=== PATIENT | male | born 1940 | race Caucasian/White ===

== ENCOUNTER 2019-07-04 10:43 | Observation (INO) | payer MEDICARE, SELFPAY ==
[2019-07-04] VITALS (12 sets, daily range): BP systolic 91–119; BP diastolic 55–71; PULSE 77–87; RESP 15–31; TEMP 36.8–37.1; O2SAT 96–98; BMI 18.1
--- NOTE | 2019-07-04 10:57 | PC.NURSE ---
waited 5 min in waiting room, patient hasn't returned, registration states he's in the restroom and spouse is with him.
--- NOTE | 2019-07-04 11:33 | DI.RAD.S_ITS ---
PROCEDURE: XR CHEST 1V INDICATIONS: jaundiced with back pain TECHNIQUE: One view of the chest was acquired. COMPARISON: None. FINDINGS: Surgical changes and devices: Surgical clips are noted in right upper quadrant abdomen. A biliary stent is also noted.. Lungs and pleura: Marked elevation of right hemidiaphragm suggestive of moderate right-sided pleural effusion. Bilateral patchy infiltrates/atelectasis are seen. Hazy groundglass opacities throughout bilateral lung rea are noted suggestive of pulmonary edema. No gross pneumothorax. Mediastinum: Tortuous thoracic aorta is seen.. Heart size is enlarged. Bones and chest wall: No suspicious bony lesions. Overlying soft tissues appear unremarkable. IMPRESSION: Moderate right pleural effusion with elevation of right hemidiaphragm. Pulmonary edema and suggestion of bilateral patchy infiltrates/atelectasis. Pulmonary vascular congestion. No gross pneumothorax. Dictated by: Scotty Sorenson M.D. on 07/04/2019 at 13:04 Approved by: Scotty Sorenson M.D. on 07/04/2019 at 13:06
[2019-07-04 12:14] LABS: Creatine Kinase 39 U/L (55-170); HEMOLYSIS < 15 (0-50); Lactate Dehydrogenase 461 U/L (313-618); Potassium 3.2 mmol/L (3.4-5.1)
[2019-07-04 12:15] LABS: Alanine Aminotransferase 12 IU/L (<50); Albumin 2.9 g/dL (3.5-5.0); Albumin Globulin Ratio 0.6 (1.0-2.8); Alkaline Phosphatase 851 U/L (38-126); Aspartate Aminotransferase 81 IU/L (17-59); BUN Creatinine Ratio 16.5 (6-22); Bilirubin Total 11.6 mg/dL (0.2-1.3); Blood Urea Nitrogen 14 mg/dL (9-20); Calcium 8.5 mg/dL (8.4-10.2); Carbon Dioxide 23 mmol/L (22-32); Chloride 108 mmol/L (98-107); Estimated Glomerular Filt Rate > 60.0 mL/min (>60); Globulin 5.2 g/dL (1.7-4.1); Glucose 118 mg/dL (80-110); Lactate (Lactic Acid) 1.1 mmol/L (0.7-2.1); Lipase 42 U/L (23-300); Sodium 141 mmol/L (137-145); Total Protein 8.1 g/dL (6.3-8.2)
--- NOTE | 2019-07-04 12:16 | ED.WEAKNESS ---
HPI - Weakness General Chief complaint: Weakness Stated complaint: Low Back Pain, SOB, Weakness, Low BP Time Seen by Provider: 07/04/19 11:32 Source: patient Mode of arrival: Ambulatory Limitations: no limitations and other History of Present Illness HPI Narrative: CC: Weakness, shortness of breath and left upper back pain. HPI: The patient is a 79-year-old male who has a history of Parkinson's disease, hard of hearing and chronic jaundice with sclerosing cholangitis. The patient for the last couple of days has had increasing shortness of breath with fatigue and no energy to get up and about. He has been complaining of a discomfort in his left arm upper chest with tenderness of the upper left posterior ribs. He denies any fall or injury. According to his he is not a diabetic or has high blood pressure and has not had a heart attack. Related Data Home Medications Medication Instructions Recorded Confirmed Ursodial 300 mg PO TID 07/04/19 acetaminophen [Tylenol] 650 mg PO Q4H PRN 07/04/19 07/04/19 ascorbic acid (vitamin C) [Vitamin 1,000 mg PO DAILY 07/04/19 07/04/19 C] balsalazide 1,500 mg PO BID 07/04/19 07/04/19 carbidopa-levodopa 2 tab PO TID 07/04/19 07/04/19 ergocalciferol (vitamin D2) 4,000 units PO DAILY 07/04/19 07/04/19 ferrous sulfate 325 mg PO DAILY 07/04/19 07/04/19 furosemide [Lasix] 40 mg PO DAILY PRN 07/04/19 07/04/19 lactobacillus combination no.8 07/04/19 [Adult Probiotic] magnesium 200 mg PO DAILY 07/04/19 07/04/19 milk thistle 1,000 mg DAILY 07/04/19 07/04/19 omeprazole 20 mg PO DAILY 07/04/19 07/04/19 polyethylene glycol 3350 [Miralax] 17 g PO DAILY 07/04/19 07/04/19 potassium chloride 20 meq PO DAILY PRN 07/04/19 07/04/19 vitamin A 10,000 unit PO DAILY 07/04/19 07/04/19 Allergies Allergy/AdvReac Type Severity Reaction Status Date / Time NSAIDS (Non-Steroidal AdvReac Verified 07/04/19 11:23 Anti-Inflamma Patient History Medical History (Updated 07/04/19 @ 18:44 by Demetri Payne MD) Cholangitis, sclerosing (Acute) History of gallbladder cancer (Acute) Knee osteoarthritis (Acute) Parkinson disease (Acute) Right femoral fracture (Acute) Spinal compression fracture (Acute) Social History household members: spouse Smoking Status: Never smoker alcohol intake: former Smoking Status: Never smoker alcohol intake frequency: other Substance Use Type: does not use Exam Initial Vital Signs Initial Vital Signs: Vital Signs Pulse Rate 87 07/04/19 11:17 Pulse Oximetry 98 07/04/19 11:17 Course Course Course Narrative: 1425 the patient's chest x-ray reveals a moderate right pleural effusion with elevation of the right hemidiaphragm. Pulmonary edema and suggestion of bilateral patchy infiltrates/atelectasis. Pulmonary vascular congestion no gross pneumothorax. The patient's initial troponin is normal. The patient's lactate acid is 1.1. A repeat troponin and EKG will be obtained on the patient as well as BNP since the patient has sclerosing cholangitis with chronic jaundice. The patient's white blood count is 10.9. The patient's initial EKG obtained at 11:3 12:24 a.m. reveals a ventricular rate of 86 with a normal sinus rhythm. Intervals appear to be otherwise normal with a borderline QTC at 452 milliseconds. Upatoi is normal. The patient has QS waves in leads III with noisy baseline. T-waves appear to be upright. The patient's T-waves in leads V1 are inverted flat in V2 questionably inverted in V3. The this suggests the possibility that the patient may have anteroseptal arm ischemia. A repeat troponin and repeat EKG will be obtained on the patient. 1434: The patient is a poor historian. I reviewed the patient's chest x-ray myself and he has an elevated right diaphragm with a very large pleural effusion on the right side. He has what appears to be bilateral arm infiltrates which could represent atelectasis. This may represent a pneumonia. A repeat EKG obtained on July 03 at 14:3 6:26 a.m. revealed a normal sinus rhythm with a ventricular rate of 84. His intervals were normal. QTC was 404 milliseconds. Upatoi was normal. The patient's EKG revealed that he had inverted T-waves in leads III with flat the T-waves in AVF. The patient had an inverted T-wave in V1. Orders Ordered: Acetaminophen (Tylenol) 650 mg PO TID [facility] Last Admin: 07/05/19 05:32 Dose: 650 mg Documented by: Admin: 07/04/19 21:55 Dose: Not Given Documented by: RADHA Carbidopa/Levodopa (Sinemet 25-100 Tab) 2 each PO TID [facility] Last Admin: 07/04/19 21:56 Dose: Not Given Documented by: RADHA Levofloxacin (Levaquin) 750 mg in 150 mls @ 100 mls/hr IV Q24H [facility] Last Infusion: 07/04/19 21:56 Dose: 100 mls/hr Documented by: Admin: 07/04/19 19:05 Dose: 100 mls/hr Documented by: RADHA Sodium Chloride (Normal Saline 0.9%) 250 mls @ 21 mls/hr IV Q24H PRN PRN Reason: Flush Naloxone HCl (Narcan) 0.2 mg IV Q2MIN PRN PRN Reason: Opiate Reversal Ondansetron HCl (Zofran) 4 mg IV Q8HR PRN PRN Reason: Nausea And Vomiting Pantoprazole Sodium (Protonix) 20 mg PO 0600 [facility] Last Admin: 07/05/19 05:27 Dose: 20 mg Documented by: Admin: 07/04/19 19:05 Dose: 20 mg Documented by: RADAH Polyethylene Glycol (Miralax) 17 gm PO DAILY [facility] Sodium Chloride (Normal Saline 0.9% Flush) 10 ml IV BID [facility] Sodium Chloride (Normal Saline 0.9% Flush) 10 ml IV PRN PRN PRN Reason: Flush Ursodiol (Actigall) 300 mg PO TID [facility] Last Admin: 07/04/19 21:56 Dose: Not Given Documented by: RADHA Discontinued Medications Sodium Chloride (Normal Saline 0.9%) 1,000 mls @ 150 mls/hr IV CONT [facility] Last Infusion: 07/04/19 16:05 Dose: 0 mls/hr Documented by: Admin: 07/04/19 12:24 Dose: 1,000 mls/hr Documented by: MISHEL Cefepime HCl 2 gm/ Sodium (Chloride) 100 mls @ 200 mls/hr IV NOW ONE Stop: 07/04/19 14:50 Last Infusion: 07/04/19 15:37 Dose: 0 mls/hr Documented by: Admin: 07/04/19 15:03 Dose: 200 mls/hr Documented by: MISHEL Potassium Chloride (Klor-Con M20) 20 meq PO NOW ONE Stop: 07/04/19 18:04 Last Admin: 07/04/19 19:05 Dose: 20 meq Documented by: RADHA Potassium Chloride (Klor-Con M20) 40 meq PO NOW ONE Stop: 07/05/19 06:45 Vital Signs Vital signs: Vital Signs - 8 hr 07/04/19 12:09 07/04/19 14:06 07/04/19 14:32 Pulse Rate 84 81 80 Respiratory Rate 17 15 20 Blood Pressure [Left Arm] 102/62 91/55 L 93/58 L Pulse Oximetry 97 98 97 MDM - Weakness Lab Data Result diagrams: 07/05/19 05:25 07/05/19 05:25 Labs: Lab Results 07/04/19 07/04/19 07/04/19 Range/Units 11:45 11:45 11:45 WBC 10.9 (4.5-11.0) X10^3/uL RBC 3.27 L (4.5-5.9) X10^6/uL Hgb 10.6 L (13.5-17.5) g/dL Hct 30.6 L (41-53) % MCV 93.6 (80-100) fL MCH 32.4 (26-34) PG MCHC 34.7 (30-36) % RDW 14.8 (11.6-14.8) % Plt Count 342 (150-400) X10^3/uL Neut % (Auto) Not Reportable Lymph % (Auto) Not Reportable Cherry % (Auto) Not Reportable Eos % (Auto) Not Reportable Baso % (Auto) Not Reportable Lymph # (Auto) Not Reportable Cherry # (Auto) Not Reportable Baso # (Auto) Not Reportable Total Counted 100 Seg Neutrophils % 69.0 (38-70) % Band Neutrophils % 6.0 (3-7) % Lymphocytes % (Manual) 16.0 L (25-45) % Monocytes % (Manual) 9.0 (2-11) % Neutrophils # (Manual) 8175 H (4061-1818) /uL RBC Morphology See below Target Cells 1+ H PT (10.1-12.7) SECONDS INR (0.9-1.3) APTT (26.4-36.2) SECONDS Sodium 141 (137-145) mmol/L Potassium 3.2 L (3.4-5.1) mmol/L Chloride 108 H (98-107) mmol/L Carbon Dioxide 23 (22-32) mmol/L BUN 14 (9-20) mg/dL Creatinine 0.85 (0.66-1.25) mg/dL Estimated GFR > 60.0 (>60) mL/min BUN/Creatinine Ratio 16.5 (6-22) Glucose 118 H (80-110) mg/dL Lactate (0.7-2.1) mmol/L Calcium 8.5 (8.4-10.2) mg/dL Total Bilirubin 11.6 H (0.2-1.3) mg/dL AST 81 H (17-59) IU/L ALT 12 (<50) IU/L Alkaline Phosphatase 851 H (38-126) U/L Lactate Dehydrogenase 461 (313-618) U/L Total Creatine Kinase 39 L (55-170) U/L CK-MB (CK-2) TNP CK-MB (CK-2) Rel Index TNP Troponin I < 0.012 (0.01-0.034) ng/mL NT-Pro-B Natriuret Pep (<450) pg/mL Total Protein 8.1 (6.3-8.2) g/dL Albumin 2.9 L (3.5-5.0) g/dL Globulin 5.2 H (1.7-4.1) g/dL Albumin/Globulin Ratio 0.6 L (1.0-2.8) Lipase 42 (23-300) U/L Procalcitonin (<0.5) ng/mL Urine Color Urine Appearance Urine pH (4.5-8.0) Ur Specific [place] (1.000-1.035) Urine Protein (Negative) Urine Glucose (UA) (Negative) g/dL Urine Ketones (NEGATIVE) Urine Occult Blood (Negative) Urine Nitrate (Negative) Urine Bilirubin (NEGATIVE) Ur Bilirubin Confirm (Negative) Urine Urobilinogen (0.2) E.U./dL Ur Leukocyte Esterase (NEGATIVE) Urine RBC (0-5/HPF) Urine WBC (0-5/HPF) Ur Squamous Epith Cells (0-5/HPF) Urine Bacteria (None) Ur Culture Indicated? 07/04/19 07/04/19 07/04/19 Range/Units 11:45 11:45 11:45 WBC (4.5-11.0) X10^3/uL RBC (4.5-5.9) X10^6/uL Hgb (13.5-17.5) g/dL Hct (41-53) % MCV (80-100) fL MCH (26-34) PG MCHC (30-36) % RDW (11.6-14.8) % Plt Count (150-400) X10^3/uL Neut % (Auto) Lymph % (Auto) Cherry % (Auto) Eos % (Auto) Baso % (Auto) Lymph # (Auto) Cherry # (Auto) Baso # (Auto) Total Counted Seg Neutrophils % (38-70) % Band Neutrophils % (3-7) % Lymphocytes % (Manual) (25-45) % Monocytes % (Manual) (2-11) % Neutrophils # (Manual) (9823-2793) /uL RBC Morphology Target Cells PT (10.1-12.7) SECONDS INR (0.9-1.3) APTT (26.4-36.2) SECONDS Sodium (137-145) mmol/L Potassium (3.4-5.1) mmol/L Chloride (98-107) mmol/L Carbon Dioxide (22-32) mmol/L BUN (9-20) mg/dL Creatinine (0.66-1.25) mg/dL Estimated GFR (>60) mL/min BUN/Creatinine Ratio (6-22) Glucose (80-110) mg/dL Lactate 1.1 (0.7-2.1) mmol/L Calcium (8.4-10.2) mg/dL Total Bilirubin (0.2-1.3) mg/dL AST (17-59) IU/L ALT (<50) IU/L Alkaline Phosphatase (38-126) U/L Lactate Dehydrogenase (313-618) U/L Total Creatine Kinase (55-170) U/L CK-MB (CK-2) CK-MB (CK-2) Rel Index Troponin I < 0.012 (0.01-0.034) ng/mL NT-Pro-B Natriuret Pep 447 (<450) pg/mL Total Protein (6.3-8.2) g/dL Albumin (3.5-5.0) g/dL Globulin (1.7-4.1) g/dL Albumin/Globulin Ratio (1.0-2.8) Lipase (23-300) U/L Procalcitonin 0.61 H (<0.5) ng/mL Urine Color Urine Appearance Urine pH (4.5-8.0) Ur Specific [place] (1.000-1.035) Urine Protein (Negative) Urine Glucose (UA) (Negative) g/dL Urine Ketones (NEGATIVE) Urine Occult Blood (Negative) Urine Nitrate (Negative) Urine Bilirubin (NEGATIVE) Ur Bilirubin Confirm (Negative) Urine Urobilinogen (0.2) E.U./dL Ur Leukocyte Esterase (NEGATIVE) Urine RBC (0-5/HPF) Urine WBC (0-5/HPF) Ur Squamous Epith Cells (0-5/HPF) Urine Bacteria (None) Ur Culture Indicated? 07/04/19 07/04/19 Range/Units 11:45 11:59 WBC (4.5-11.0) X10^3/uL RBC (4.5-5.9) X10^6/uL Hgb (13.5-17.5) g/dL Hct (41-53) % MCV (80-100) fL MCH (26-34) PG MCHC (30-36) % RDW (11.6-14.8) % Plt Count (150-400) X10^3/uL Neut % (Auto) Lymph % (Auto) Cherry % (Auto) Eos % (Auto) Baso % (Auto) Lymph # (Auto) Cherry # (Auto) Baso # (Auto) Total Counted Seg Neutrophils % (38-70) % Band Neutrophils % (3-7) % Lymphocytes % (Manual) (25-45) % Monocytes % (Manual) (2-11) % Neutrophils # (Manual) (6455-0901) /uL RBC Morphology Target Cells PT 19.6 H (10.1-12.7) SECONDS INR 1.7 H (0.9-1.3) APTT 43 H (26.4-36.2) SECONDS Sodium (137-145) mmol/L Potassium (3.4-5.1) mmol/L Chloride (98-107) mmol/L Carbon Dioxide (22-32) mmol/L BUN (9-20) mg/dL Creatinine (0.66-1.25) mg/dL Estimated GFR (>60) mL/min BUN/Creatinine Ratio (6-22) Glucose (80-110) mg/dL Lactate (0.7-2.1) mmol/L Calcium (8.4-10.2) mg/dL Total Bilirubin (0.2-1.3) mg/dL AST (17-59) IU/L ALT (<50) IU/L Alkaline Phosphatase (38-126) U/L Lactate Dehydrogenase (313-618) U/L Total Creatine Kinase (55-170) U/L CK-MB (CK-2) CK-MB (CK-2) Rel Index Troponin I (0.01-0.034) ng/mL NT-Pro-B Natriuret Pep (<450) pg/mL Total Protein (6.3-8.2) g/dL Albumin (3.5-5.0) g/dL Globulin (1.7-4.1) g/dL Albumin/Globulin Ratio (1.0-2.8) Lipase (23-300) U/L Procalcitonin (<0.5) ng/mL Urine Color Brown Urine Appearance Clear Urine pH 5.0 (4.5-8.0) Ur Specific [place] 1.015 (1.000-1.035) Urine Protein Trace H (Negative) Urine Glucose (UA) Negative (Negative) g/dL Urine Ketones Negative (NEGATIVE) Urine Occult Blood 2+ H (Negative) Urine Nitrate Negative (Negative) Urine Bilirubin 2+ H (NEGATIVE) Ur Bilirubin Confirm Positive H (Negative) Urine Urobilinogen Normal (0.2) E.U./dL Ur Leukocyte Esterase Negative (NEGATIVE) Urine RBC 10-30/hpf H (0-5/HPF) Urine WBC 0-1/hpf (0-5/HPF) Ur Squamous Epith Cells 0-1 /hpf (0-5/HPF) Urine Bacteria Moderate (10-30) H (None) Ur Culture Indicated? Specimen cultured Discharge Plan Departure Patient Disposition: Admitted as Observation Clinical Impression: Weakness, Jaundice, Cholangitis, sclerosing Fatigue Qualifiers: Fatigue type: chronic, unspecified Qualified Code(s): R53.82 - Chronic fatigue, unspecified Bilateral pneumonia Qualifiers: Pneumonia type: due to unspecified organism Lung location: unspecified part of lung Qualified Code(s): J18.9 - Pneumonia, unspecified organism Back pain Qualifiers: Back pain location: thoracic back pain Chronicity: unspecified Back pain laterality: left Qualified Code(s): M54.6 - Pain in thoracic spine Urinary tract infection Qualifiers: Urinary tract infection type: site unspecified Hematuria presence: with hematuria Qualified Code(s): N39.0 - Urinary tract infection, site not specified Discharge Date/Time: 07/04/19 17:32 Referrals: Eddie Aguirre MD [Primary Care Provider] - Admit Date/Time: 07/04/19 15:00 Admit Provider: Demetri Payne
[2019-07-04 12:24] LABS: Appearance Urine UA Clear; Color Urine UA BROWN
[2019-07-04] MEDS: SODIUM CHLORIDE 0.9% 1,000 ML 1000 ML IV (12:24)
[2019-07-04 12:25] LABS: Troponin I < 0.012 ng/mL (0.01-0.034)
[2019-07-04 12:25] LABS: Bilirubin Urine UA 2+ (NEGATIVE); Glucose Urine UA NEGATIVE (Negative); Ketones Urine UA NEGATIVE (NEGATIVE); Nitrite Urine UA NEGATIVE (Negative); Occult Blood Urine UA 2+ (Negative); Protein Urine UA TRACE (Negative); Specific Gravity Urine UA 1.015 (1.000-1.035); Urobilinogen Urine UA Normal E.U./dL (0.2)
[2019-07-04 12:26] LABS: Bacteria Urine Moderate (10-30); Culture Indicated Urine Specimen Cultured; Leukocyte Esterase Urine UA NEGATIVE (NEGATIVE); RBC Urine 10-30/HPF (0-5/HPF); Squamous Epithelial Cell Urine 0-1 /HPF (0-5/HPF); WBC Urine 0-1/HPF (0-5/HPF)
[2019-07-04 12:27] LABS: Ictotest Urine Positive (Negative)
[2019-07-04 12:53] LABS: Add Manual Diff / Slide Review YES; Hematocrit 30.6 % (41-53); Hemoglobin 10.6 g/dL (13.5-17.5); Mean Corpuscular HGB Conc 34.7 % (30-36); Mean Corpuscular Hemoglobin 32.4 PG (26-34); Mean Corpuscular Volume 93.6 fL (80-100); Platelet Count 342 X10^3/uL (150-400); Red Blood Cell Count 3.27 X10^6/uL (4.5-5.9); Red Cell Distribution Width 14.8 % (11.6-14.8); White Blood Cell Count 10.9 X10^3/uL (4.5-11.0)
[2019-07-04 14:11] LABS: Neutrophils Absolute Manual 8175 /uL (3000-5900); Total Cells Counted 100
[2019-07-04 14:12] LABS: Target Cells 1+
[2019-07-04 15:01] LABS: NT-proBNP (BNP-Adult 18+) 447 pg/mL (<450); Troponin I < 0.012 ng/mL (0.01-0.034)
[2019-07-04] MEDS: CEFEPIME 2 GM in SODIUM CHLORIDE 0.9% 100 ML 200 ML IV (15:03)
--- NOTE | 2019-07-04 15:38 | PC.NURSE ---
Patient is being updated by MD. Mckenna. He is alert and oriented and trying to decide if he wants to be admitted or go home for follow up with his primary care physician.
[2019-07-04 15:45] LABS: Procalcitonin 0.61 ng/mL (<0.5)
--- NOTE | 2019-07-04 15:53 | PC.NURSE ---
Patient was on iv fluids NaCl 150mls/hr. His fluids were changed to 1000mls/hr bolus per provider verbal order.
[2019-07-04 16:02] LABS: INR 1.7 (0.9-1.3); Prothrombin Time 19.6 SECONDS (10.1-12.7)
[2019-07-04 16:04] LABS: PTT Partial Thromboplastin Tim 43 SECONDS (26.4-36.2)
--- NOTE | 2019-07-04 17:57 | PC.NURSE ---
Pt's requesting to stay with patient when he is admitted due to the fact that he is confused at times and refuses help from staff when he needs the bathroom. Kassy- LISA coordinator aware and is going to speak with those involved in order to get her permission. is aware and is waiting in ED waiting room
--- NOTE | 2019-07-04 18:21 | P.HP_ITS ---
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 Patient is hard of hearing and spouse who is reliable provides significant corroborative history. She states about 3 weeks ago he started to notice pain in the left upper back area. The discomfort started after he was bending over in chair. Thin about 2 weeks ago he started to have shortness of breath where he was getting out of breath performing normal activities. He has also been getting weaker over the last 2-3 weeks. He has noticed recent increase in his lower extremity swelling. He usually takes 40 mg of Lasix once or twice a week to maintain control of edema but has noticed Lasix is not helping much over the past few weeks. Patient denies cough, fever, abdominal pain, urinary pain or frequency. His bowel movements have been normal with taking medication for his Crohn's disease. Patient gets his care through various providers at [facility]. As noted, he has primary sclerosing cholangitis which was diagnosed in 2018. He is chronically jaundiced. On March 19, 2019 his bilirubin was 11.9 and on June 04, 2019 his bilirubin was 9.7. His bilirubin on labs today is 11.6. He was diagnosed with gallbladder carcinoma and had a cholecystectomy about a year ago at [facility]. Spouse indicates that he has had follow-up MRIs and told there was no indication of recurrence of his cancer. He denies history coronary disease or heart failure. On ER evaluation, his chest x-ray showed at least a moderate right pleural effusion with elevated right hemidiaphragm and bilateral patchy infiltrat es/atelectasis. 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 On laboratories is WBC is 10.9 with mild lymphopenia, without left shift, sodium 141, potassium 3.2, BUN 14, creatinine 0.85, glucose 118, bilirubin 11.6, alk- phos 851, troponin less than 0.012, normal pro BNP 447, albumin 2.9 and slightly elevated procalcitonin of 0.61. On urinalysis he has moderate bacteria with 0-1 WBC in 10-30 RBC. Urine was sent for culture. Patient History Medical History (Updated 07/04/19 @ 18:44 by Demetri Payne MD) Cholangitis, sclerosing (Acute) History of gallbladder cancer (Acute) Knee osteoarthritis (Acute) Parkinson disease (Acute) Right femoral fracture (Acute) Spinal compression fracture (Acute) Family & Social History Social History: household members spouse Prior Living Arrangements House Safety & Behavioral: Feels Safe in Current Yes Environment Been Physically Hurt or No Threatened By a Person Suicidal Ideation Description None Suicide Plan Description No Plan Tobacco & Substance use: Smoking Status Never smoker alcohol intake former alcohol intake frequency other Substance Use Type does not use Meds Home Medications and Allergies Home Medications Medication Instructions Recorded Confirmed Type Ursodial 300 mg PO TID 07/04/19 History acetaminophen [Tylenol] 650 mg PO Q4H PRN 07/04/19 07/04/19 History ascorbic acid (vitamin C) [Vitamin 1,000 mg PO DAILY 07/04/19 07/04/19 History C] balsalazide 1,500 mg PO BID 07/04/19 07/04/19 History carbidopa-levodopa 2 tab PO TID 07/04/19 07/04/19 History ergocalciferol (vitamin D2) 4,000 units PO DAILY 07/04/19 07/04/19 History ferrous sulfate 325 mg PO DAILY 07/04/19 07/04/19 History furosemide [Lasix] 40 mg PO DAILY PRN 07/04/19 07/04/19 History lactobacillus combination no.8 07/04/19 History [Adult Probiotic] magnesium 200 mg PO DAILY 07/04/19 07/04/19 History milk thistle 1,000 mg DAILY 07/04/19 07/04/19 History omeprazole 20 mg PO DAILY 07/04/19 07/04/19 History polyethylene glycol 3350 [Miralax] 17 g PO DAILY 07/04/19 07/04/19 History potassium chloride 20 meq PO DAILY PRN 07/04/19 07/04/19 History vitamin A 10,000 unit PO DAILY 07/04/19 07/04/19 History Allergies Allergy/AdvReac Type Severity Reaction Status Date / Time NSAIDS (Non-Steroidal AdvReac Verified 07/04/19 11:23 Anti-Inflamma Review of Systems Review of Systems ROS: Yes All systems reviewed with the patient and are negative except as otherwise documented Exam Vital Signs (past 8 hours): - 07/04/19 11:17 07/04/19 11:23 07/04/19 12:09 Temperature 98.7 F Pulse Rate 87 85 84 Respiratory Rate 17 Blood Pressure Blood Pressure [Left Arm] 107/71 102/62 Pulse Oximetry 98 97 07/04/19 14:06 07/04/19 14:32 07/04/19 15:39 Temperature Pulse Rate 81 80 81 Respiratory Rate 15 20 17 Blood Pressure Blood Pressure [Left Arm] 91/55 L 93/58 L 94/55 L Pulse Oximetry 98 97 96 07/04/19 16:23 07/04/19 17:29 Temperature Pulse Rate 87 87 Respiratory Rate 31 H 31 H Blood Pressure 119/71 Blood Pressure [Left Arm] 119/71 Pulse Oximetry 97 97 Oxygen Delivery Method Room Air Narrative Exam Narrative: General: Jaundiced chronically ill appearing elderly male who is very hard of hearing HEENT: Nontraumatic, pupils equal, sclera jaundiced, oropharynx unremarkable Neck: No lymphadenopathy Lungs: Breathing nonlabored somewhat diminished sounds on the right, no crackles or wheeze Back: Severe thoracic kyphosis Abdomen: Soft, nontender, no abdominal mass, no HSM Extremities: 2+ edema in the lower legs Skin: Dry, without rash Neurological: Alert, cooperative, not overtly confused, nonfocal weakness Objective Labs Result Diagrams: 07/04/19 11:45 07/04/19 11:45 Labs: Laboratory Results - last 24 hr 07/04/19 07/04/19 07/04/19 11:45 11:45 11:45 WBC 10.9 RBC 3.27 L Hgb 10.6 L Hct 30.6 L MCV 93.6 MCH 32.4 MCHC 34.7 RDW 14.8 Plt Count 342 Neut % (Auto) Not Reportable Lymph % (Auto) Not Reportable [place] % (Auto) Not Reportable Eos % (Auto) Not Reportable Baso % (Auto) Not Reportable Lymph # (Auto) Not Reportable [place] # (Auto) Not Reportable Baso # (Auto) Not Reportable Total Counted 100 Seg Neutrophils % 69.0 Band Neutrophils % 6.0 Lymphocytes % (Manual) 16.0 L Monocytes % (Manual) 9.0 Neutrophils # (Manual) 8175 H RBC Morphology See below Target Cells 1+ H PT INR APTT Sodium 141 Potassium 3.2 L Chloride 108 H Carbon Dioxide 23 BUN 14 Creatinine 0.85 Estimated GFR > 60.0 BUN/Creatinine Ratio 16.5 Glucose 118 H Lactate Calcium 8.5 Total Bilirubin 11.6 H AST 81 H ALT 12 Alkaline Phosphatase 851 H Lactate Dehydrogenase 461 Total Creatine Kinase 39 L CK-MB (CK-2) TNP CK-MB (CK-2) Rel Index TNP Troponin I < 0.012 NT-Pro-B Natriuret Pep Total Protein 8.1 Albumin 2.9 L Globulin 5.2 H Albumin/Globulin Ratio 0.6 L Lipase 42 Procalcitonin Urine Color Urine Appearance Urine pH Ur Specific [place] Urine Protein Urine Glucose (UA) Urine Ketones Urine Occult Blood Urine Nitrate Urine Bilirubin Ur Bilirubin Confirm Urine Urobilinogen Ur Leukocyte Esterase Urine RBC Urine WBC Ur Squamous Epith Cells Urine Bacteria Ur Culture Indicated? 07/04/19 07/04/19 07/04/19 11:45 11:45 11:45 WBC RBC Hgb Hct MCV MCH MCHC RDW Plt Count Neut % (Auto) Lymph % (Auto) [place] % (Auto) Eos % (Auto) Baso % (Auto) Lymph # (Auto) [place] # (Auto) Baso # (Auto) Total Counted Seg Neutrophils % Band Neutrophils % Lymphocytes % (Manual) Monocytes % (Manual) Neutrophils # (Manual) RBC Morphology Target Cells PT INR APTT Sodium Potassium Chloride Carbon Dioxide BUN Creatinine Estimated GFR BUN/Creatinine Ratio Glucose Lactate 1.1 Calcium Total Bilirubin AST ALT Alkaline Phosphatase Lactate Dehydrogenase Total Creatine Kinase CK-MB (CK-2) CK-MB (CK-2) Rel Index Troponin I < 0.012 NT-Pro-B Natriuret Pep 447 Total Protein Albumin Globulin Albumin/Globulin Ratio Lipase Procalcitonin 0.61 H Urine Color Urine Appearance Urine pH Ur Specific [place] Urine Protein Urine Glucose (UA) Urine Ketones Urine Occult Blood Urine Nitrate Urine Bilirubin Ur Bilirubin Confirm Urine Urobilinogen Ur Leukocyte Esterase Urine RBC Urine WBC Ur Squamous Epith Cells Urine Bacteria Ur Culture Indicated? 07/04/19 07/04/19 11:45 11:59 WBC RBC Hgb Hct MCV MCH MCHC RDW Plt Count Neut % (Auto) Lymph % (Auto) [place] % (Auto) Eos % (Auto) Baso % (Auto) Lymph # (Auto) [place] # (Auto) Baso # (Auto) Total Counted Seg Neutrophils % Band Neutrophils % Lymphocytes % (Manual) Monocytes % (Manual) Neutrophils # (Manual) RBC Morphology Target Cells PT 19.6 H INR 1.7 H APTT 43 H Sodium Potassium Chloride Carbon Dioxide BUN Creatinine Estimated GFR BUN/Creatinine Ratio Glucose Lactate Calcium Total Bilirubin AST ALT Alkaline Phosphatase Lactate Dehydrogenase Total Creatine Kinase CK-MB (CK-2) CK-MB (CK-2) Rel Index Troponin I NT-Pro-B Natriuret Pep Total Protein Albumin Globulin Albumin/Globulin Ratio Lipase Procalcitonin Urine Color Brown Urine Appearance Clear Urine pH 5.0 Ur Specific [place] 1.015 Urine Protein Trace H Urine Glucose (UA) Negative Urine Ketones Negative Urine Occult Blood 2+ H Urine Nitrate Negative Urine Bilirubin 2+ H Ur Bilirubin Confirm Positive H Urine Urobilinogen Normal Ur Leukocyte Esterase Negative Urine RBC 10-30/hpf H Urine WBC 0-1/hpf Ur Squamous Epith Cells 0-1 /hpf Urine Bacteria Moderate (10-30) H Ur Culture Indicated? Specimen cultured Assessment & Plan Assessment & Plan narrative: This is a 79-year-old male with complicated history of primary sclerosing cholangitis, gallbladder carcinoma status post resection l ast year, Parkinson's disease, thoracic and lumbar spine compression fractures, Crohn's who presented to emergency department due to increasing weakness, dyspnea and back pain. 1. Right pleural effusion, present on admission, active -patient presenting with dyspnea and weakness over the past 2-3 weeks, not hypoxic -chest x-ray noting elevated right hemidiaphragm and suggestive of a moderate right pleural effusion with bilateral patchy infiltrate or atelectasis, the effusion was not present on outside CT scan from 04/01/[address] noted chronic areas of atelectasis in the lower lobes with chronic elevation of right hemidiaphragm -etiology of effusion may be parapneumonic, secondary to primary or metastatic malignancy, or secondary to hypoalbuminemia from liver disease, -will discuss with radiology getting ultrasound-guided diagnostic/therapeutic thoracentesis, patient's INR is 1.7 which is likely not reversible, and could possibly be impediment to performing procedure -WBC 10.9 without left shift, procalcitonin slightly elevated at 0.61 could go along with bacterial process, lactate is normal, proBNP normal essentially ruling out heart failure -Levaquin 750 mg IV daily for possible pneumonia -check COVID-19 PCR 2. Possible urinary tract infection, present on admission, active -patient without urinary symptoms but has moderate bacteria in urine, 0-1 WBC, 10-30 RBC, culture indicated -on Levaquin as for possible pneumonia 3. Acute thoracic back pain, left-sided, present on admission, active -patient with new back pain x3 weeks, has history of multiple thoracic and lumbar compression fractures and may have another compression fracture, patient states back pain has been subsiding and we decided to hold off on further evaluation and to manage him with Tylenol, he would need MRI to determine whether he has new appearing compression fracture -continue regularly scheduled Tylenol which patient is on at home 4. Primary sclerosing cholangitis, chronic, active -patient is jaundice with bilirubin close to 12 -continue Ursodiol per home routine 5. History of gallbladder carcinoma resection -patient has had follow-ups at [facility] since his cholecystectomy in 2019 and told he is in remission 6. Parkinson's disease -continue patient's Sinemet per home routine 7. Crohn's disease -continue patient's own medication, not on formulary here, if he is going to be in hospital more than 1-2 days Admission status: Hospital observation Code status: Full code per spouse DVT prophylaxis: Elevated INR, Lovenox contraindicated Surrogate decision maker: Spouse Quality VTE Deep Vein Thrombosis/Pulmonary Embolism Present on Admission: No
--- NOTE | 2019-07-04 18:44 | PC.NURSE ---
Addendum entered by Marquita Philippe R.N. 07/04/19 22:43: Pt prefers right side lying position. Requires staff members x 2 to turn pt for brief change d/t fecal incontinence. Small open area proximal left buttock with erythema/excoriation to BL inner buttocks. Photos taken and barrier cream applied following pericare. Brief replaced and pt returned to right side lying position. BL calf scd's replaced. Spouse is currently not in pt's room. Pt reports took all evening meds so hs scheduled meds were not given. Bed alarm in place. No tremors noted, however, pt is rigid with turning/repositioning. Pillow between knees. Compression hose/wrap removed @ hs. Original Note: Pt to room 211 from [facility] Requires slider board to transfer from stretcher to bed. Reports h/o left knee pain. Compression wrap to left lower extremity in place as well as compression knee hi hose to RLE. Pt's spouse given special permission to stay with pt as per [place] evening hospitality house supervisor. Dr. Payne makes this request as well. Ultrasound alerts this teletypewriter installer thoracentesis cannot be completed this evening, but tomorrow. Dr. Payne informed. Per U/S tech, pt's INR may be prohibitive for thoracentesis tomorrow. Dr. Payne informed. Rapid covid-19 test completed. Pt placed on isolation. Pt is jaundiced. Follows commands appropriately. Reddened buttocks with small open area left inner buttock. Pitting edema to exposed feet BL. Pedal pulses present with doppler BL.
[2019-07-04] MEDS: levoFLOXacin 750 MG/150 ML PIGGYBACK 100 MG IV (19:05)
[2019-07-04] MEDS: POTASSIUM CHLORIDE 20 MEQ TAB PO (19:05)
[2019-07-04] MEDS: PANTOPRAZOLE 20 MG TABLET PO (19:05)
[2019-07-04 19:45] LABS: COVID19 -Nasal RAPID Negative (Negative)
[2019-07-05] VITALS (10 sets, daily range): BP systolic 100–123; BP diastolic 64–73; PULSE 73–89; RESP 16–20; TEMP 36.8–37.9; O2SAT 95–98
[2019-07-05] MEDS: PANTOPRAZOLE 20 MG TABLET PO (05:27)
[2019-07-05] MEDS: ACETAMINOPHEN 325 MG TABLET 650 MG PO ×2 (05:32→13:50)
[2019-07-05 05:41] LABS: Hematocrit 29.4 % (41-53); Hemoglobin 10.2 g/dL (13.5-17.5); Mean Corpuscular HGB Conc 34.9 % (30-36); Mean Corpuscular Hemoglobin 32.5 PG (26-34); Mean Corpuscular Volume 93.1 fL (80-100); Platelet Count 331 X10^3/uL (150-400); Red Blood Cell Count 3.16 X10^6/uL (4.5-5.9); Red Cell Distribution Width 14.8 % (11.6-14.8); White Blood Cell Count 10.6 X10^3/uL (4.5-11.0)
[2019-07-05 05:43] LABS: Add Manual Diff / Slide Review YES
[2019-07-05 05:49] LABS: BUN Creatinine Ratio 15.6 (6-22); Blood Urea Nitrogen 12 mg/dL (9-20); Calcium 8.2 mg/dL (8.4-10.2); Carbon Dioxide 24 mmol/L (22-32); Chloride 110 mmol/L (98-107); Estimated Glomerular Filt Rate > 60.0 mL/min (>60); Glucose 91 mg/dL (80-110); HEMOLYSIS < 15 (0-50); Potassium 3.3 mmol/L (3.4-5.1); Sodium 139 mmol/L (137-145)
[2019-07-05 06:08] LABS: Procalcitonin 0.63 ng/mL (<0.5)
--- NOTE | 2019-07-05 06:13 | PC.NURSE ---
Pt alert and orientex x3. COMANCHE. Weakness in BLE. /caregiver at bedside (anisha lee, acute in home caregiver) Pt has no complaints during the night. Pt refused Scds/ 3+ pitting edema in BLE. Fainy pedal pulses bilaterally. Pt has increased temp this AM and reports mild pain in back. Tylenol given. WCTM. Pt alarm set, call light within reach
[2019-07-05 06:20] LABS: Neutrophils Absolute Manual 8056 /uL (3000-5900); Total Cells Counted 100
[2019-07-05 06:21] LABS: Anisocytosis 1+; Target Cells 2+
[2019-07-05] MEDS: CARBIDOPA-LEVODOPA 25/100 TABLET 2 EACH PO ×2 (08:59→13:38)
[2019-07-05] MEDS: POTASSIUM CHLORIDE 20 MEQ TAB 40 MEQ PO ×3 (08:59→12:12)
[2019-07-05] MEDS: SODIUM CHLORIDE 0.9% FLUSH 10 ML IV ×2 (09:00→12:10)
[2019-07-05] MEDS: polyethylene glycoL 3350 17 GM POWD.PACK PO (09:02)
--- NOTE | 2019-07-05 10:06 | PC.NURSE ---
Addendum entered by Xochitl Urena R.N. 07/05/19 11:36: Dr. Payne in to speak with pt and Bety at 1137. Addendum entered by Xochitl Urena R.N. 07/05/19 11:30: Pt's Bety requesting pt to have his Balsalazide 1500 mg BID, pt's last dose was 07/03 1630. THis is a non-formulary medication. Pt's does not have a supply with her. Bety requesting that write for a prescription for pt to take a dose for now. Spoke with Dr. Payne at 1130, made aware, pt may be a possible discharge later today, if not, eBty would have to get medication from home. Addendum entered by Xochitl Urena R.N. 07/05/19 10:35: At 1030, per Dr. Payne, pt will have Ultrasound imaging first and determine if Thoracentesis is ultimately needed. Dr. Payne to modify U/S order. Original Note: Day Shift- Pt A&OX3, disoriented to day of week, date, does state that it is currently at the end of the month of Jun, 2019. Pt's Bety rooming in, as previously approved 07/03 who is very helpful with pt's ADL care. Bety stated helping pt to BR using walker with CHAIR PAD MAKER supervision. Pt was inc of BM, she had changed his brief and placed barrier cream to inner buttocks. Able to make needs known using call light. Pt is chronically jaundiced, BLE pitting edema 3+. RLE to just above knee and LLE to below knee. Pedal pulses found with doppler and marked by this scientific technical writer. Right lung AE diminished with coarseness and crackles. Left lung AE clear and diminished. SOBOE. Awaiting U/S guided Thoracentesis. Left message at 0920 to have dept call back with timing of procedure as pt, his , and Dr. Payne were asking. No other voiced concerns, call light within reach.
[2019-07-05] MEDS: FUROSEMIDE 100 MG/10 ML VIAL 80 MG IV (12:10)
--- NOTE | 2019-07-05 14:07 | CM.IDA ---
Initial DCP Assessment Note: Patient is a 79 yo male, resident of [facility]. 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 PCP: Eric Augustine Payer: ANGIE Reviewed chart. Patient is observation status. According to RN Xochitl, spouse Bety allowed at bedside during COVID-19 pandemic, cleared by Jody Snell, d/t patient's difficulty in understanding (very MOAPA) and being a poor historian. Bety assisting staff in communication/interpretation of needs. Met w/patient and his Bety at bedside to introduce role. Patient and spouse have been for 25 years. Patient has three adult children that live in the [place] area and check in by phone. Bety explains approx. 8 years ago everything happened at once and patient's health began to decline. Patient requires assistance with all ADLs. Spouse is the primary and only cg at this time, she explains patient has had home health before but patient often does not feel it is needed or wanted for very long. Bety works from home and assists patient w/ bathing/hygiene, dressing, meal prep, assist w/toilet/wiping and changing depends briefs. Patient uses a walker at baseline and able to self transfer Bety very concerned about the weakness and SOB that patient has suffered from in the last two weeks and hopeful he will regain strength. Bety explains she can leave patient alone at home as long as he has food and the bedside commode near him. Patient spends most of his day watching TV from his recliner. Bety is concerned about patient's medical POC and is fearful we won't get answers about why he has been so weak Bety is planning to take patient home upon DC. Discussed Home Health, Bety attempted to review this w/patient, he states I like what you do to his (she encourages patient to complete his exercises daily). Bety requests this MANUAL WRITER return to talk about Dispo so that she and patient can consider. Following closely for coordination of DCP. HH referral may be delayed until tomorrow, at which time a referral can be faxed but [facility] may not be able to start care until next week, date unknown. HERNÁN Almonte Discharge Planning/Care Management CM Discharge Assessment Start: 07/05/19 13:58 Freq: Status: Active Protocol: Document 07/05/19 13:58 DEVIN (Rec: 07/05/19 14:07 DEVIN [id number]) Discharge Planning Assessment Assigned Socket Welder Helper HERNÁN Alejandre DPOA/Assigned Designee Name Bety Escalera, spouse Contact Information [phone], home Advance Directives? No History Provided By Significant Other,Medical Record Prior Living Arrangements House Household Members spouse Type of transporation used prior to Relies on Others admit Independent with ADL's No Is patient alert and oriented? Yes: Very MOAPA Needs Assistance With Bathing,Grooming,Meal Prep, Toileting,Managing Medications ,Home Chores / Shopping Patient/Family Preference Home with Home Health Barriers to Discharge Yes Comment Medically complex and functionally declining Discharge Plan Home Transportation Arrangement Spouse Additional Comment Possibly home health ?
--- NOTE | 2019-07-05 16:05 | PT-IP ANOTE ---
checked on pt and spouse in room. inquired regarding pt's PLOF and home set up. spouse also stated that pt is on lasix and is currently using the urinal and he won't be ready for the next couple of hours for PT but at the same time, spouse refused PT for pt. spouse stated that as long as pt's back pain is controlled, they are going to be ok. Informed pt regarding PT eval and pt refused stated that he is going home. informed pt and spouse and PT will check back tomorrow. Spouse stated that they are going home tonight. informed spouse that PT will f/u tomorrow if pt is still in the hospital.
--- NOTE | 2019-07-05 17:08 | P.DS_ITS ---
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 Patient is hard of hearing and spouse who is reliable provides significant corroborative history. She states about 3 weeks ago he started to notice pain in the left upper back area. The discomfort started after he was bending over in chair. Thin about 2 weeks ago he started to have shortness of breath where he was getting out of breath performing normal activities. He has also been getting weaker over the last 2-3 weeks. He has noticed recent increase in his lower extremity swelling. He usually takes 40 mg of Lasix once or twice a week to maintain control of edema but has noticed Lasix is not helping much over the past few weeks. Patient denies cough, fever, abdominal pain, urinary pain or frequency. His bowel movements have been normal with taking medication for his Crohn's disease. Patient gets his care through various providers at [facility]. As noted, he has primary sclerosing cholangitis which was diagnosed in 2018. He is chronically jaundiced. On March 19, 2019 his bilirubin was 11.9 and on June 04, 2019 his bilirubin was 9.7. His bilirubin on labs today is 11.6. He was diagnosed with gallbladder carcinoma and had a cholecystectomy about a year ago at [facility]. Spouse indicates that he has had follow-up MRIs and told there was no indication of recurrence of his cancer. He denies history coronary disease or heart failure. On ER evaluation, his chest x-ray showed possible moderate right pleural effusion with elevated right hemidiaphragm and bilateral patchy infiltrates/ atelectasis. 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 On laboratories is WBC is 10.9 with mild lymphopenia, without left shift, sodium 141, potassium 3.2, BUN 14, creatinine 0.85, glucose 118, bilirubin 11.6, alk- phos 851, troponin less than 0.012, normal pro BNP 447, albumin 2.9 and slightly elevated procalcitonin of 0.61. On urinalysis he has moderate bacteria with 0-1 WBC in 10-30 RBC. Urine was sent for culture. Discharge Providers Provider Date of admission: 07/04/19 15:00 Discharge Date: 07/05/19 Primary care physician: Eddie Aguirre MD Consults: 07/05/19 09:36 Consult to Physical Therapy Evaluate & Treat Comment: Physician Instructions: Evaluate and Treat Discharge provider: Demetri Payne MD Summary Hospital Course Discharge Diagnosis: 1. Generalized weakness 2. Dyspnea 3. Peripheral edema, worsening 4. Chronic elevated right diaphragm 5. Chronic atelectasis bilateral lower lobes 6. Possible bacterial pneumonia 7. Possible urinary tract infection 8. Primary sclerosing cholangitis 9. History of gallbladder carcinoma status post cholecystectomy 10. History of Crohn's 11. Parkinson's 12. 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 Patient was admitted for overnight hospital observation and discha rged late the following day after completion of workup. We were initially concerned about possible moderate to large right pleural effusion and need for ultrasound-guided thoracentesis. We were able to obtain imaging from CT scan done on April 01, 2019 at [facility] for direct comparison to chest x-ray from this admission. There does not appear to be any new findings. Patient has chronic very elevated right hemidiaphragm and the liver pushes all the way up into his chest cavity. He has chronic atelectasis in the lower lobes seen on prior CT and there was not definitive evidence of new infiltrate. He has severe kyphosis which further compromises lung volumes. His WBC remained normal without left shift but his procalcitonin was mildly elevated at 0.6. We treated him with Levaquin for possible developing pneumonia. He also presented with worsening edema in his legs not responsive to his usual diuretic. His pro BNP was normal and therefore echo was not pursued due to low likelihood of heart failure explaining peripheral edema. More likely edema is due to vascular 3rd spacing secondary to hypoalbuminemia and also due to venous stasis. He did get 1 dose of 80 mg IV Lasix with 1 L urine output but no improvement in dyspnea or edema in the legs. I am discharging him on torsemide 20 mg q.d. to replace his Lasix. There was concerned about a possible UTI since he had moderate bacteria in the urine but no wbc's. His urine culture has remained negative. He was treated with Levaquin as above for possible pneumonia. He is being discharged on 5 more days of antibiotic treatment with oral Levaquin. He had mild hypokalemia and was treated with additional oral potassium. Patient did not have noticeable improvement in presenting symptoms but appeared stable and wanted to return home. He will follow-up with his providers at [facility]. Status at Discharge Cognitive/behavioral status at discharge: oriented Functional status at discharge: wheelchair bound Exam Vital Signs (past 8 hours): - 07/05/19 14:00 07/05/19 15:46 07/05/19 16:00 Temperature 98.8 F 98.3 F Pulse Rate 88 89 Respiratory Rate 18 20 Blood Pressure 123/70 100/70 Pulse Oximetry 97 98 97 Oxygen Delivery Method Room Air,Nasal Cannula Oxygen Flow Rate 0 Objective Labs Result Diagrams: 07/05/19 05:25 07/05/19 05:25 Labs: Laboratory Results - last 24 hr 07/04/19 07/05/19 07/05/19 18:35 05:25 05:25 WBC 10.6 RBC 3.16 L Hgb 10.2 L Hct 29.4 L MCV 93.1 MCH 32.5 MCHC 34.9 RDW 14.8 Plt Count 331 Neut % (Auto) Not Reportable Lymph % (Auto) Not Reportable Douglas % (Auto) Not Reportable Eos % (Auto) Not Reportable Baso % (Auto) Not Reportable Lymph # (Auto) Not Reportable Douglas # (Auto) Not Reportable Baso # (Auto) Not Reportable Total Counted 100 Seg Neutrophils % 68.0 Band Neutrophils % 8.0 H Lymphocytes % (Manual) 6.0 L Atypical Lymphs % 11.0 H Monocytes % (Manual) 7.0 Neutrophils # (Manual) 8056 H Plt Morphology Comment RBC Morphology See below Anisocytosis 1+ H Target Cells 2+ H Sodium Potassium Chloride Carbon Dioxide BUN Creatinine Estimated GFR BUN/Creatinine Ratio Glucose Calcium Procalcitonin 0.63 H COVID-19 PCR Negative 07/05/19 05:25 WBC RBC Hgb Hct MCV MCH MCHC RDW Plt Count Neut % (Auto) Lymph % (Auto) Douglas % (Auto) Eos % (Auto) Baso % (Auto) Lymph # (Auto) Douglas # (Auto) Baso # (Auto) Total Counted Seg Neutrophils % Band Neutrophils % Lymphocytes % (Manual) Atypical Lymphs % Monocytes % (Manual) Neutrophils # (Manual) Plt Morphology Comment RBC Morphology Anisocytosis Target Cells Sodium 139 Potassium 3.3 L Chloride 110 H Carbon Dioxide 24 BUN 12 Creatinine 0.77 Estimated GFR > 60.0 BUN/Creatinine Ratio 15.6 Glucose 91 Calcium 8.2 L Procalcitonin COVID-19 PCR Discharge Plan Discharge Plan Patient Disposition: Home Discharge orders & Medications Prescriptions: New torsemide 20 mg tablet 20 mg PO DAILY 30 Days Qty: 30 RF: 0 levofloxacin [Levaquin] 750 mg tablet 750 mg PO DAILY 5 Days Qty: 5 RF: 0 Continued acetaminophen [Tylenol] 325 mg Tablet 650 mg PO Q4H PRN (Reason: Pain (Scale Score 4-6)) RF: 0 ascorbic acid (vitamin C) [Vitamin C] 1,000 mg Tablet 1,000 mg PO DAILY RF: 0 milk thistle 500 mg Capsule 1,000 mg DAILY RF: 0 potassium chloride 10 mEq Tablet Extended Release 20 meq PO DAILY PRN (Reason: Edema) RF: 0 vitamin A 10,000 unit Capsule 10,000 unit PO DAILY RF: 0 ferrous sulfate 325 mg (65 mg iron) Tablet 325 mg PO DAILY RF: 0 balsalazide 750 mg Capsule 1,500 mg PO BID RF: 0 omeprazole 20 mg Capsule,Delayed Release(Dr/Ec) 20 mg PO DAILY RF: 0 polyethylene glycol 3350 [Miralax] 17 gram/dose Powder 17 g PO DAILY RF: 0 carbidopa-levodopa 25-100 mg Tablet 2 tab PO TID RF: 0 magnesium 200 mg Tablet 200 mg PO DAILY RF: 0 Adult Probiotic 3 billion cell Capsule RF: 0 Ursodial 300 mg tablet 300 mg PO TID RF: 0 ergocalciferol (vitamin D2) 4,000 units tablet 4,000 units PO DAILY RF: 0 Discontinued furosemide [Lasix] 20 mg Tablet 40 mg PO DAILY PRN (Reason: Edema) RF: 0 Follow up/Referrals: Eddie Aguirre MD [Primary Care Provider] - Discharge Health Status Multidrug resistant organism: No MDRO Diet/Activity/Treatments Diet: Diet as Tolerated Visit Report/Discharge Packet Instructions: How to Prevent Falls, DI for Pleural Effusion Discharge Data Primary Care Provider: Eddie Aguirre Attending Provider: Demetri Payne Admit Date/Time: 07/04/19 15:00 Quality VTE Deep Vein Thrombosis/Pulmonary Embolism Present on Admission: No
[2019-07-05] MEDS: levoFLOXacin 250 MG TABLET 750 MG PO (17:39)
--- NOTE | 2019-07-05 18:44 | PC.NURSE ---
Assumed care of pt at 1500. A/O, gen weakness noted. Edema to BLE. Declined to elevate BLE. Voiding frequently post Lasix administration. Pt states he gets SOB with exertion and would like to try oxygen to see it helps. Sats 97% RA, 1L NC applied sats 99%. Pt states no change noted. MD in for rounding, d/c to home ordered. MD requests medical records printed and provided to pt to take to his follow up visit. Release form signed by pt. Pt verbalized understanding of all d/c instructions and education. Scripts electronically sent to pharmacy. Pt verbalized he will belt picker medications. Pt dressed and escorted out via personal w/c by [employer] and spouse to private vehicle. Pt left in stable condition with all personal belongings.
== END 2019-07-05 18:15 | disposition home or self-care (01) ==
LOC: ED 14:56 → AC 15:01
PROVIDERS: Admitting Provider Internal Medicine; Emergency Provider Emergency Medicine; Family Provider Family Medicine; PCP Family Medicine; Referring Provider Emergency Medicine; Visit Provider Internal Medicine
DX: J90 Pleural effusion, not elsewhere classified (principal); R53.1 Weakness; R06.02 Shortness of breath; R07.9 Chest pain, unspecified; G20 Parkinson's disease; R53.82 Chronic fatigue, unspecified; K83.09 Other cholangitis; K74.3 Primary biliary cirrhosis; M54.6 Pain in thoracic spine; K50.90 Crohn's disease, unspecified, without complications; Z85.89 Personal history of malignant neoplasm of other organs and systems; R60.0 Localized edema; J98.11 Atelectasis; Z11.59 Encounter for screening for other viral diseases; M48.54XD Collapsed vertebra, not elsewhere classified, thoracic region, subsequent encounter for fracture with routine healing
CPT/HCPCS: 36415; 71045; 80048; 80053; 81001; 82550; 83605; 83615; 83690; 83880; 84145; 84484; 85025; 85610; 85730; 87040; 87086; 87635; 93005; 93010; 96365; 96366; 96367; 96375; 99284; 99406; G0378; J0692; J1940; J1956